=== PATIENT | female | born 1955 | race Caucasian/White ===

== ENCOUNTER 2021-09-04 10:40 | Emergency (ER) | payer OTHER ==
[2021-09-04] MEDS ORDERED: morphine SULFATE 4 MG/ML VIAL IVPUSH ONE (11:03)
[2021-09-04] MEDS ORDERED: ACETAMINOPHEN 1000 MG/100 ML BAG IVPB ONE (11:03)
[2021-09-04] MEDS ORDERED: ACETAMINOPHEN INJECTION 100 ML IVPB ONE (11:11)
[2021-09-04 11:19] VITALS: TEMP 97.8; BMI 22.6
[2021-09-04 11:40] LABS: BASO % 0.5 % (0-2.0); EOS % 1.1 % (0-4.5); HEMATOCRIT 37.2 % (32.4-45.2); HEMOGLOBIN 12.5 GM/dL (10.7-15.3); LYMPH % 14.4 % (8-40); MCH 28.5 pg (25.7-33.7); MCHC 33.6 g/dl (32.0-36.0); MEAN CELL VOLUME 84.7 fl (80-96); MEAN PLT VOLUME 7.2 fl (7.5-11.1); MONO % 4.9 % (3.8-10.2); NEUT % 79.1 % (42.8-82.8); PLATELET COUNT 238 10^3/uL (134-434); RBC 4.39 M/mm3 (3.60-5.2); RDW 13.2 % (11.6-15.6); WHITE BLOOD COUNT 8.4 K/mm3 (4.0-10.0)
[2021-09-04 11:48] LABS: INR 1.08 (0.83-1.09); PROTHROMBIN TIME (PATIENT) 12.4 SEC (9.7-13.0)
[2021-09-04 11:50] LABS: ACTIVATED PTT 32.6 SECONDS (25.2-36.5)
[2021-09-04 12:07] LABS: ALBUMIN 3.7 g/dl (3.4-5.0); CALCIUM 9.3 mg/dL (8.5-10.1)
[2021-09-04 12:08] LABS: BLOOD UREA NITROGEN 21.7 mg/dL (7-18)
[2021-09-04 12:10] LABS: CREATININE 0.8 mg/dL (0.55-1.3)
[2021-09-04] MEDS ORDERED: ONDANSETRON 4 MG/2 ML VIAL IVPUSH ONE (12:11)
[2021-09-04 12:12] LABS: BILIRUBIN,TOTAL 0.3 mg/dL (0.2-1); TOT PROT 7.4 g/dl (6.4-8.2)
[2021-09-04] MEDS ORDERED: PROPOFOL 200 MG/20 ML VIAL IVPUSH ONE (12:12)
[2021-09-04] MEDS ORDERED: KETAMINE HCL 200 MG/20 ML VIAL IVPUSH ONE (12:16)
[2021-09-04] MEDS ORDERED: ONDANSETRON 4 MG/2 ML VIAL ONE (12:16)
[2021-09-04] MEDS ORDERED: PROPOFOL 20 ML ONE (12:32)
[2021-09-04] MEDS ORDERED: KETAMINE HCL 200 MG/20 ML VIAL ONE (12:40)
[2021-09-04 16:16] VITALS: BP 117/72; PULSE 70
== END 2021-09-04 14:29 | disposition home or self-care (01) ==
LOC: JER 10:40
PROC: 0RSK3ZZ Reposition Left Shoulder Joint, Percutaneous Approach (ICD-10-PCS; principal; 2021-09-04)
PROC: 3E0333Z Introduction of Anti-inflammatory into Peripheral Vein, Percutaneous Approach (ICD-10-PCS; 2021-09-04)
PROC: 3E033GC Introduction of Other Therapeutic Substance into Peripheral Vein, Percutaneous Approach (ICD-10-PCS; 2021-09-04)
PROC: 3E033NZ Introduction of Analgesics, Hypnotics, Sedatives into Peripheral Vein, Percutaneous Approach (ICD-10-PCS; 2021-09-04)
PROC: 3E033GC Introduction of Other Therapeutic Substance into Peripheral Vein, Percutaneous Approach (ICD-10-PCS; 2021-09-04)
PROC: 3E033GC Introduction of Other Therapeutic Substance into Peripheral Vein, Percutaneous Approach (ICD-10-PCS; 2021-09-04)
DX: S43.004A Unspecified dislocation of right shoulder joint, initial encounter (principal); W00.0XXA Fall on same level due to ice and snow, initial encounter
CPT/HCPCS: 36415; 73030-TC-RT-FY; 73060-TC-RT-FY; 73070-TC-RT-FY; 80053; 85025; 85610; 85730; 86850; 86900; 86901; 99285-25; C9803; J0131; U0003; U0005